=== PATIENT | male | born 1995 | race American Indian/Alaskan Native ===

== ENCOUNTER 2020-06-07 16:23 | Emergency (ER) | payer SELFPAY ==
[2020-06-07 17:29] VITALS: BP 150/81
--- NOTE | 2020-06-07 21:39 | Emergency Department Report ---
ED ENT HPI - General Chief complaint: Sore Throat Stated complaint: TONSIL SORE THROAT Time Seen by Provider: 06/07/20 20:44 Source: patient Mode of arrival: Ambulatory Limitations: No Limitations - History of Present Illness MD complaint: sore throat -: Gradual, days(s) (5) Location: throat Severity: mild, moderate Quality: dull Consistency: constant Improves with: none Worsens with: swallowing, eating Associated Symptoms: sore throat - Related Data Previous Rx's Medication Instructions Recorded Last Taken Type Ibuprofen [Motrin 600 MG tab] 600 mg PO Q8H PRN #30 tablet 04/27/16 Unknown Rx cephALEXin [Keflex] 500 mg PO Q12HR #20 cap 04/27/16 Unknown Rx Amoxicillin [Amoxicillin TAB] 875 mg PO BID #20 tablet 06/07/20 Unknown Rx Chlorhexidine Mouthwash [Peridex] 15 ml MM BID #1 bottle 06/07/20 Unknown Rx Lidocaine Viscous 2% 5 ml MM Q3H PRN #120 udc 06/07/20 Unknown Rx Allergies Allergy/AdvReac Type Severity Reaction Status Date / Time No Known Allergies Allergy Verified 04/26/16 21:39 ED Dental HPI - General Chief complaint: Sore Throat Stated complaint: TONSIL SORE THROAT Time Seen by Provider: 06/07/20 20:44 Source: patient Mode of arrival: Ambulatory Limitations: No Limitations - Related Data Previous Rx's Medication Instructions Recorded Last Taken Type Ibuprofen [Motrin 600 MG tab] 600 mg PO Q8H PRN #30 tablet 04/27/16 Unknown Rx cephALEXin [Keflex] 500 mg PO Q12HR #20 cap 04/27/16 Unknown Rx Amoxicillin [Amoxicillin TAB] 875 mg PO BID #20 tablet 06/07/20 Unknown Rx Chlorhexidine Mouthwash [Peridex] 15 ml MM BID #1 bottle 06/07/20 Unknown Rx Lidocaine Viscous 2% 5 ml MM Q3H PRN #120 udc 06/07/20 Unknown Rx Allergies Allergy/AdvReac Type Severity Reaction Status Date / Time No Known Allergies Allergy Verified 04/26/16 21:39 ED Review of Systems ROS: Stated complaint: TONSIL SORE THROAT Other details as noted in HPI Comment: All other systems reviewed and negative ED Past Medical Hx - Past Medical History Hx Hypertension: Yes (not on meds) - Surgical History Past Surgical History?: No - Social History Smoking Status: Never Smoker Substance Use Type: None - Medications Home Medications: Home Medications Medication Instructions Recorded Confirmed Last Taken Type Ibuprofen [Motrin 600 MG tab] 600 mg PO Q8H PRN #30 tablet 04/27/16 Unknown Rx cephALEXin [Keflex] 500 mg PO Q12HR #20 cap 04/27/16 Unknown Rx Amoxicillin [Amoxicillin TAB] 875 mg PO BID #20 tablet 06/07/20 Unknown Rx Chlorhexidine Mouthwash [Peridex] 15 ml MM BID #1 bottle 06/07/20 Unknown Rx Lidocaine Viscous 2% 5 ml MM Q3H PRN #120 udc 06/07/20 Unknown Rx ED Physical Exam - General Limitations: No Limitations General appearance: alert, in no apparent distress - Head Head exam: Present: atraumatic, normocephalic - Eye Eye exam: Present: normal appearance - ENT ENT exam: Present: mucous membranes moist, other (pharynx red with swollen uvula with exudate) - Neck Neck exam: Present: normal inspection, tenderness - Respiratory Respiratory exam: Present: normal lung sounds bilaterally. Absent: respiratory distress - Cardiovascular Cardiovascular Exam: Present: regular rate, normal rhythm. Absent: systolic murmur, diastolic murmur, rubs, gallop - GI/Abdominal GI/Abdominal exam: Present: soft, normal bowel sounds - Rectal Rectal exam: Present: deferred - Extremities Exam Extremities exam: Present: normal inspection - Back Exam Back exam: Present: normal inspection - Neurological Exam Neurological exam: Present: alert, oriented X3 - Psychiatric Psychiatric exam: Present: normal affect, normal mood - Skin Skin exam: Present: warm, dry, intact, normal color. Absent: rash ED Course Vital Signs 06/07/20 16:42 Temperature 98.3 F Pulse Rate 80 Respiratory 20 Rate Blood Pressure 150/81 [Left] O2 Sat by Pulse 99 Oximetry Critical care attestation.: If time is entered above; I have spent that time in minutes in the direct care of this critically ill patient, excluding procedure time. ED Disposition Clinical Impression: Exudative pharyngitis Disposition: DC-01 TO HOME OR SELFCARE Is pt being admited?: No Does the pt Need Aspirin: No Condition: Stable Instructions: Pharyngitis (ED) Referrals: PRIMARY CARE, [Primary Care Provider] - 3-5 Days [facility] [Provider Group] - 3-5 Days
== END 2020-06-07 22:06 | disposition home or self-care (01) ==
LOC: ED 16:23
DX: J02.9 Acute pharyngitis, unspecified (principal)
CPT/HCPCS: 99281

== ENCOUNTER 2020-10-07 08:29 | Emergency (ER) | payer SELFPAY ==
[2020-10-07 08:38] VITALS: BP 149/95
--- NOTE | 2020-10-07 08:46 | Emergency Department Report ---
Chief Complaint: Abdominal Pain Stated Complaint: CHEST PAIN/STOMACH PAIN Time Seen by Provider: 10/07/20 08:42 - HPI History of Present Illness: 25-year-old -[place] male patient presents with complaints of burning epigastric pain x2 days. Patient states the pain mainly occurs upon waking and after eating. He denies any history of abdominal surgeries, nausea/vomiting/diarrhea, melena/hematochezia, dysuria/hematuria/urinary frequency, fever/chills/sweats, or chest pain. Patient states there is no current pain at this time. He has not tried any OTC medications for his pain. He states when the pain does occur he rates it as about a 5/10 in severity. He admits to eating before laying down to sleep at night. He denies heavy alcohol use or history of PUD. No abdominal tenderness to palpation noted on exam. His vitals are normal. Recommend patient try OTC antacid medications for his symptoms and follow-up with primary care for further evaluation. He is well-appearing and stable for discharge home. Discussed signs and symptoms in great detail that should prompt immediate return to the emergency department for further evaluation, patient verbalized understanding. - Exam Vital Signs: Vital Signs 10/07/20 08:34 Temperature 98.5 F Pulse Rate 76 Respiratory 18 Rate Blood Pressure 149/95 O2 Sat by Pulse 98 Oximetry MSE screening note: Focused history and physical exam performed. Due to findings the following was ordered: ED Disposition for MSE Clinical Impression: Gastritis, acute Disposition: Z-07 MED SCREENING EXAM-LEFT Is pt being admited?: No Does the pt Need Aspirin: No Condition: Stable Instructions: Gastritis, Adult, [id number], Heartburn, Food Choices for Gastroesophageal Reflux Disease, Adult Additional Instructions: Please purchase [id number] famotidine (Pepcid) and take daily for 10 days. You may also take Tums as needed. Avoid foods that are spicy, greasy, and acidic (juices, sodas, fruits) Referrals: [facility] [Provider Group] - 2-3 Days ED Physical Exam - General Limitations: No Limitations General appearance: alert, in no apparent distress - Head Head exam: Present: atraumatic, normocephalic - Eye Eye exam: Present: normal appearance. Absent: scleral icterus - ENT ENT exam: Present: normal exam - Neck Neck exam: Present: normal inspection, full ROM - Respiratory Respiratory exam: Present: normal lung sounds bilaterally. Absent: respiratory distress, chest wall tenderness - Cardiovascular Cardiovascular Exam: Present: regular rate, normal rhythm. Absent: systolic murmur, diastolic murmur, rubs, gallop - GI/Abdominal GI/Abdominal exam: Present: soft, normal bowel sounds. Absent: distended, guarding, rebound, rigid - Extremities Exam Extremities exam: Present: normal inspection - Back Exam Back exam: Present: normal inspection. Absent: CVA tenderness (R), CVA tenderness (L) - Neurological Exam Neurological exam: Present: alert, oriented X3, normal gait - Psychiatric Psychiatric exam: Present: normal affect, normal mood - Skin Skin exam: Present: warm, dry, intact, normal color. Absent: rash, cyanosis, diaphoretic, ecchymosis ED Review of Systems ROS: Stated complaint: CHEST PAIN/STOMACH PAIN Other details as noted in HPI Constitutional: denies: chills, fever ENT: denies: throat pain Respiratory: denies: cough, shortness of breath Cardiovascular: denies: chest pain Endocrine: denies: excessive sweating Gastrointestinal: abdominal pain. denies: nausea, vomiting, diarrhea, constipation, hematemesis, melena Genitourinary: denies: frequency, hematuria Skin: denies: rash, lesions, change in color Neurological: denies: headache Hematological/Lymphatic: denies: easy bleeding, easy bruising, swollen glands
== END 2020-10-07 09:00 | disposition left against medical advice (07) ==
LOC: ED 08:29
DX: R07.9 Chest pain, unspecified (principal); Z53.21 Procedure and treatment not carried out due to patient leaving prior to being seen by health care provider

== ENCOUNTER 2020-10-08 16:54 | Emergency (ER) | payer SELFPAY ==
[2020-10-08 17:03] VITALS: BP 144/103
--- NOTE | 2020-10-08 17:24 | Emergency Department Report ---
Chief Complaint: Extremity Injury, Upper Stated Complaint: CHEST PAIN; ABDOMINAL PAIN Time Seen by Provider: 10/08/20 17:04 - HPI History of Present Illness: Patient is a 25-year-old male presents emergency room with complaints of epigastric pain for a few days. He states it feels like a knot and a burning sensation. He denies any nausea, vomiting, diarrhea, fever, cough, shortness of breath, hemoptysis, hematochezia, hematemesis, melena. He states he is having normal bowel movements. He states he ate [employer] before the symptoms began. He also endorses marijuana use. He denies any alcohol use. No past medical history. No allergies to medications. Patient was evaluated in the emergency department yesterday for the same symptoms and was advised to use [id number] treatments but has not taken the medications. He has not followed up with her primary care doctor. Vitals are stable On exam: Non toxic appearing, no acute distress atraumatic, normocephalic normal appearance of the eyes, PERRL, EOMI, no periorbital edema or ecchymosis moist mucus membranes regular heart rate and rhythm, no gallops, no rubs, no murmurs breath sounds are clear bilaterally, no w/r/r, no stridor, no respiratory distress, no accessory muscle use Abdomen is soft, nontender, nondistended, no guarding, no rebound, no rigidity, normal bowel sounds, no peritoneal signs, negative Seay sign, negative McBurney's point tenderness, negative Rodríguez Robledo's and Kris sign A&O x4, no focal neuro deficit skin is warm, dry, intact Patient is presenting with symptoms most consistent with GERD versus PUD versus gastritis His symptoms were exacerbated by eating [employer] He has not been taking medications for his symptoms He has no clinical signs of obstruction Do not suspect acute emergent intra-abdominal pathology at this time Discussed the importance of follow-up for reexamination Patient be referred to primary care doctor and GI Discussed very strict return precautions with patient advised pt Please take Pepcid [id number] daily. May use Maalox as needed for burning sensation. Increase your water intake. Follow the diet for acid reflux/gastritis. Follow-up with your primary care doctor for examination. Follow-up with a GI doctor. Return to emergency room for any new or worsening symptoms including but not limited to worsening pain, fever, vomiting, unable to tolerate by mouth intake, unable to have a bowel movement or pass gas, blood in the stool, etc. Medical screening examination performed and there is no threat to life or limb at this time - Exam Vital Signs: Vital Signs 10/08/20 17:03 Temperature 98.2 F Pulse Rate 67 Respiratory 18 Rate Blood Pressure 144/103 [Right] O2 Sat by Pulse 98 Oximetry MSE screening note: Focused history and physical exam performed. Due to findings the following was ordered: ED Disposition for MSE Clinical Impression: Abdominal discomfort Disposition: Z- MED SCREENING EXAM-LEFT Is pt being admited?: No Does the pt Need Aspirin: No Condition: Stable Instructions: Heartburn, [id number], Gastritis, Adult, Food Choices for Gastroesophageal Reflux Disease, Adult Additional Instructions: Please take Pepcid [id number] daily. May use Maalox as needed for burning sensation. Increase your water intake. Follow the diet for acid reflux/gastritis. Follow-up with your primary care doctor for examination. Follow-up with a GI doctor. Return to emergency room for any new or worsening symptoms including but not limited to worsening pain, fever, vomiting, unable to tolerate by mouth intake, unable to have a bowel movement or pass gas, blood in the stool, etc. Referrals: NELLIE LIMON MD [Staff Physician] - 2-3 Days [facility] [Provider Group] - 2-3 Days [facility] [Outside] - 2-[address] [facility] [place] [Outside] - 2-3 Days [facility] [Provider Group] - 2-3 Days Time of Disposition: 17:25 Print Language: ISRAELI
== END 2020-10-08 17:45 | disposition left against medical advice (07) ==
LOC: ED 16:54
DX: R07.9 Chest pain, unspecified (principal); Z53.21 Procedure and treatment not carried out due to patient leaving prior to being seen by health care provider